=== PATIENT | female | born 1975 | race Caucasian/White ===

== ENCOUNTER → 2017-02-26 | Outpatient (CLI) | payer BC ==
[~2017-02-26] MED LIST: IBUP-103 PO; METH-307 PO; MUSCLE RELAXANT
[2017-02-26 13:39] LABS: BLOOD UREA NITROGEN 9 mg/dl (7-18); BUN/CREATININE RATIO 11.6 (10-20); CARBON DIOXIDE 22 mmol/L (21-32); CHLORIDE 110 mmol/L (98-107); CHOLESTEROL 191 mg/dl (0-200); GLUCOSE 99 mg/dl (70-99); SODIUM 139 mmol/L (136-145)
[2017-02-26 13:50] LABS: CHOLESTEROL/HDL RATIO 6.6; HDL CHOLESTEROL 29 mg/dl; LDL CHOLESTEROL CALCULATED 129 mg/dl; TRIGLYCERIDES 166 mg/dl (0-150); VERY LOW DENSITY LIPOPROT CALC 33 mg/dl
== END | disposition home or self-care (01) ==
LOC: C.LABPVFM 08:31
PROVIDERS: ATTEND Nurse Practitioner
DX: Z13.1 Encounter for screening for diabetes mellitus (principal); Z13.220 Encounter for screening for lipoid disorders; R53.83 Other fatigue; R63.5 Abnormal weight gain

== ENCOUNTER 2017-03-14 18:54 | Emergency (ER) | payer BC ==
[~2017-03-14] VITALS: Ht 162.6 cm; Wt 97.2 kg
[~2017-03-14 18:54] MED LIST changes: -METH-307 PO
[2017-03-14 19:09] VITALS: TEMP 36.8; Ht 162.6 cm; Wt 97.2 kg
--- NOTE | 2017-03-14 20:19 | EMERGENCY ROOM VISIT NOTE ---
ED Visit Note First contact with patient: 19:51 CHIEF COMPLAINT: Shoulder pain HISTORY OF PRESENT ILLNESS: This 41-year-old female patient presents to the emergency department ambulatory complaining of pain in the right shoulder. The patient reports that last night, she was painting and standing on a ladder when she lost her footing and slipped, striking her right shoulder and right side on the ladder. She has full range of motion of the shoulder, but states it is very painful to do certain movements. She denies any significant pain at rest. The patient has taken no medication for relief of the pain. No previous significant previous shoulder disease or injury. No numbness or tingling. No neck or back pain. No chest pain or shortness of breath. No abdominal pain or nausea/vomiting. REVIEW OF SYSTEMS: A 6 system review of systems was performed with positives and pertinent negatives in the HPI. ALLERGIES: No known drug allergies MEDICATIONS: No chronic medications PMH: Tubal ligation, migraines SOCIAL HISTORY: The patient lives locally with family. Nonsmoker, denies alcohol use. PHYSICAL EXAM: Vital Signs: Reviewed nurse's notes, vital signs stable. GENERAL: This is a 41-year-old female, in no acute distress, but appears to be in pain, well-developed, well-nourished. MUSCULOSKELETAL: There is no deformity in the contour of the right shoulder and there are no bony deformities noted. There is no sulcus sign. There is tenderness over the anterior shoulder and mid shaft of the right clavicle. The patient's range of motion is full. Supraspinatus strength 5/5. No tenderness of the humerus, elbow, wrist, or hand. [employer] strength 5/5. Radial pulse 2+. NECK: No tenderness to palpation over the cervical spine. HEART: Regular rate and rhythm without murmurs gallops or rubs. LUNGS: Clear to auscultation bilaterally without wheezes, rales or rhonchi. No accessory muscle use. No retractions. NEURO: The patient is alert and oriented to person, place, and time. Normal sensation to light and sharp touch. Capillary refill less than 2 seconds. RADIOGRAPHIC FINDINGS: R SHOULDER MIN 2 VIEWS ROUTINE FINDINGS: Glenohumeral and acromioclavicular joints congruent. No acute fracture or malalignment. Regional soft tissues within normal limits. Visualized portion of the right hemithorax normal. IMPRESSION: No acute osseous injury of the right shoulder. R CLAVICLE FINDINGS: Acromioclavicular and sternomanubrial joints grossly congruent. No acute fracture or malalignment. Clavicular heads appear symmetric relative to the manubrium. IMPRESSION: No acute osseous injury of the right clavicle. EMERGENCY DEPARTMENT COURSE: I examined the patient. An X-ray of the right shoulder and clavicle was reviewed by myself and radiology and shows no acute findings. Patient was placed in an arm sling for comfort. Conservative measures were discussed. She was advised to follow-up with orthopedics if she has persistent or worsening pain. She verbalized understanding of my assessment and treatment plan and was discharged home in good condition. Medication reconciliation: I attest that I have personally reviewed the patient 's current medication list. Blood pressure screening: Patient was found to have normal blood pressure on screening and does not require follow-up. DIAGNOSIS: Shoulder contusion Current/Historical Medications Scheduled PRN Ibuprofen Tab (Advil), 600-800 MG PO Q6-8HR PRN for Pain Methocarbamol (Robaxin), 375-750 MG PO Q8 PRN for Nuscle Relaxer Allergies Coded Allergies: No Known Allergies (Verified Allergy, Unknown, 12/01/03) Vital Signs Date Time Temp Pulse Resp B/P (MAP) Pulse Ox O2 Delivery O2 Flow Rate FiO2 03/14/17 20:50 61 129/50 97 03/14/17 19:09 36.8 90 16 138/67 100 Room Air Departure Information Impression Primary Impression: Right shoulder injury Dispostion Home / Self-Care Condition GOOD Referrals Suzanna Pope, C.R.N.P (PCP) Waqar Escamilla MD Patient Instructions My [facility] Additional Instructions You have been treated in the Emergency Department for Shoulder Pain. For pain control, you can use the following [id number] medicines (if >12 yo): - Regular strength (325mg/tab) Tylenol (acetaminophen) 2 tabs every 4-6 hours as needed. Do not exceed 12 tablets in a 24 hour period. Avoid taking more than 4 grams (4000 mg) of Tylenol per day. This includes any other sources of acetaminophen you may take on a regular basis. - Regular strength (200 mg/tab) Advil (ibuprofen) 1-2 tabs every 4-6 hours as needed. Do not exceed a dose of 3200 mg per day. If this is a recent injury (<24 hrs), ice can be applied to the area of pain for the first 3 days to help decrease pain and inflammation. Keep the sling in place for the next 3-4 days, make sure to take the shoulder out of the sling several times daily and perform range of motion exercises to prevent stiffness. Follow-up with orthopedics in 3-4 days if you have persistent pain or difficulty moving the arm. Return to the Emergency Department if your current symptoms worsen despite treatment course outlined above, or if you develop any of the following symptoms : intractable pain despite aforementioned treatment course or new onset of numbness or tingling of the arm.
--- NOTE | 2017-03-14 20:25 | DIAGNOSTIC IMAGING REPORT ---
R SHOULDER MIN 2 VIEWS ROUTINE CLINICAL HISTORY: 41 years-old Female presenting with right shoulder pain, injury. TECHNIQUE: Internal rotation, external rotation, and Grashey views of the right shoulder were obtained. COMPARISON: None. FINDINGS: Glenohumeral and acromioclavicular joints congruent. No acute fracture or malalignment. Regional soft tissues within normal limits. Visualized portion of the right hemithorax normal. IMPRESSION: No acute osseous injury of the right shoulder. Electronically signed by: Waqar De Guzman M.D. 03/14/2017 8:24 PM Dictated Date/Time: 03/14/2017 8:23 PM
--- NOTE | 2017-03-14 20:26 | DIAGNOSTIC IMAGING REPORT ---
R CLAVICLE CLINICAL HISTORY: 41 years-old Female presenting with right shoulder pain, fall off of a ladder one day ago. TECHNIQUE: Frontal and apical lordotic views of the right clavicle were obtained. COMPARISON: None. FINDINGS: Acromioclavicular and sternomanubrial joints grossly congruent. No acute fracture or malalignment. Clavicular heads appear symmetric relative to the manubrium. IMPRESSION: No acute osseous injury of the right clavicle. Electronically signed by: Waqar De Guzman M.D. 03/14/2017 8:25 PM Dictated Date/Time: 03/14/2017 8:24 PM
[2017-03-14] MEDS ORDERED: METH-307 PO (20:47)
[2017-03-14 20:50] VITALS: BP 129/50; PULSE 61; O2SAT 97
== END 2017-03-14 20:51 | disposition home or self-care (01) ==
LOC: C.EDB 18:56 → C.EDD 20:51
DX: S40.011A Contusion of right shoulder, initial encounter (principal); W11.XXXA Fall on and from ladder, initial encounter; Y93.89 Activity, other specified; Z98.51 Tubal ligation status